=== PATIENT | female | born 1985 | race Caucasian/White ===

== ENCOUNTER → 2016-10-16 | Outpatient (CLI) | payer OTHER | END | disposition home or self-care (01) | LOC: LAB 12:10 | PROVIDERS: ATTEND Physician Assistant | DX: Z20.9 Contact with and (suspected) exposure to unspecified communicable disease (principal) | CPT/HCPCS: 36415; 86706; 86735; 86762; 86765; 86787 ==

== ENCOUNTER → 2016-12-04 | Outpatient (CLI) | payer OTHER | END | disposition home or self-care (01) | LOC: LAB 15:08 | PROVIDERS: ATTEND Registered Nurse General Practice | DX: Z20.9 Contact with and (suspected) exposure to unspecified communicable disease (principal) | CPT/HCPCS: 86765 ==

== ENCOUNTER → 2017-04-22 | Outpatient (CLI) | payer OTHER | END | disposition home or self-care (01) | LOC: LAB 10:00 | PROVIDERS: ATTEND Registered Nurse General Practice | DX: Z20.9 Contact with and (suspected) exposure to unspecified communicable disease (principal) | CPT/HCPCS: 86765 ==

== ENCOUNTER → 2019-11-22 | Outpatient (CLI) | payer BC | END | disposition home or self-care (01) | LOC: LAB 09:58 | PROVIDERS: ATTEND Specialist | DX: Z01.419 Encounter for gynecological examination (general) (routine) without abnormal findings (principal) | CPT/HCPCS: 86304 ==

== ENCOUNTER 2020-01-17 15:10 | Emergency (ER) | payer BC, OTHER ==
[~2020-01-17] VITALS: Ht 165.1 cm; Wt 81.6 kg
[2020-01-17] MEDS ORDERED: SODIUM CHLORIDE 0.9% 1,000 ML IV ONE (15:32)
[2020-01-17] MEDS ORDERED: IOHEXOL 300 MG/ML 100ML BOTTLE IJ ONE (15:41)
[2020-01-17 16:00] LABS: Basophils # (auto) 0 10 ^3/uL (0-0.2); Eosinophils # (auto) 0.4 10 ^3/uL (0-0.8); Hemoglobin 10.4 g/dL (12.2-16.2); Mean Corpuscular Hemoglobin 23.4 pg (28.0-32.0)
[2020-01-17 16:02] LABS: Basophils % (auto) 0.3 % (0.0-2.0); Hematocrit 33.6 % (36.0-46.0); Lymphocytes # (auto) 1.4 10 ^3/uL (0.4-5.4); Lymphocytes % (auto) 14.4 % (10.0-50.0); Mean Corpuscular Volume 75.6 fL (80.0-100.0); Monocytes # (auto) 0.5 10 ^3/uL (0-1.3); Monocytes % (auto) 4.8 % (0.0-12.0); Neutrophils # (auto) 7.3 10 ^3/uL (1.6-8.6); Neutrophils % (auto) 76.5 % (37.0-80.0); Nucleated Red Blood Cells % 0.1 %; Platelet Count (auto) 257 10^3/uL (140-450); Red Blood Cells 4.45 10^6/uL (4.0-5.20); Red Cell Distribution Width 15.8 % (11.8-14.3); White Blood Cell 9.6 10^3/uL (4.4-10.8)
[2020-01-17 16:14] LABS: Albumin 3.3 g/dL (3.4-5.0); BUN/Creatinine Ratio 13.8; Calcium 8.6 mg/dL (8.5-10.1); Potassium 3.7 mmol/L (3.5-5.1)
[2020-01-17 16:17] LABS: Bilirubin, Total 0.3 mg/dL (0.2-1.0); Total Protein 6.7 g/dL (6.4-8.2)
[2020-01-17] MEDS ORDERED: KETOROLAC TROMETH 30 MG/ML 1ML VIAL IV ONE (16:30)
[2020-01-17 17:11] LABS: Urine Bacteria NONE SEEN /hpf (None Seen); Urine Blood 2+ /uL (Negative); Urine Specific Gravity 1.017 (1.001-1.035); Urine WBC 1 /hpf (0 - 5)
[2020-01-17 17:32] VITALS: BP 116/74
== END 2020-01-17 17:32 | disposition home or self-care (01) ==
LOC: EDBD 15:10 → EEVIPCON 15:10 → ER 15:10
DX: S40.012A Contusion of left shoulder, initial encounter (principal); D64.9 Anemia, unspecified; E44.1 Mild protein-calorie malnutrition; R55 Syncope and collapse; R51 Headache; M25.562 Pain in left knee; M25.561 Pain in right knee; R07.89 Other chest pain; Z68.30 Body mass index [BMI] 30.0-30.9, adult; Z88.5 Allergy status to narcotic agent; Z88.0 Allergy status to penicillin; V49.49XA Driver injured in collision with other motor vehicles in traffic accident, initial encounter; Y93.I9 Activity, other involving external motion; Y92.89 Other specified places as the place of occurrence of the external cause; Y99.8 Other external cause status
CPT/HCPCS: 36415; 70450; 71260; 73030; 73560; 73620; 74177; 80053; 81001; 85025; 96361; 96374; 99285; J1885; Q9967

== ENCOUNTER 2020-07-14 15:07 | Emergency (ER) | payer BC ==
[~2020-07-14] VITALS: Ht 162.6 cm; Wt 83.9 kg
[2020-07-14 15:39] VITALS: BP 160/93
[2020-07-14] MEDS ORDERED: LIDOCAINE 1% HCL (LOCAL ANESTH.) INJ 20ML MDV IJ ONE (15:45)
== END 2020-07-14 16:13 | disposition home or self-care (01) ==
LOC: EEVIPCON 15:07 → ER 15:07
DX: S61.011A Laceration without foreign body of right thumb without damage to nail, initial encounter (principal); Z88.0 Allergy status to penicillin; Z88.5 Allergy status to narcotic agent; W26.8XXA Contact with other sharp object(s), not elsewhere classified, initial encounter; Y93.89 Activity, other specified; Y92.89 Other specified places as the place of occurrence of the external cause; Y99.8 Other external cause status
CPT/HCPCS: 12001; 99282; J2001